=== PATIENT | female | born 1965 | race Hispanic/Latino ===

== ENCOUNTER 2017-05-09 06:10 | Day surgery (SDC) | payer OTHER ==
[2017-05-04 13:49] VITALS: BMI 34.2
[2017-05-09] MEDS ORDERED: Lidocaine Hydrochloride 5 ML INJ ONE (07:43)
[2017-05-09] MEDS ORDERED: ePHEDrine 50 mg/ml Inj ONE (07:43)
[2017-05-09] MEDS ORDERED: Midazolam 2 MG/2 ML VIAL ONE (07:45)
[2017-05-09] MEDS ORDERED: Propofol 10 mg/ml Inj (20 ML) ONE (07:45)
[2017-05-09] MEDS ORDERED: Albuterol HFA 90 mcg/actuation (8 g) ONE (07:56)
[2017-05-09] MEDS ORDERED: Clindamycin 600mg/50ml NS 0 MG/0 ML BAG IVPB ONE (07:57)
--- NOTE | 2017-05-09 08:37 | PCM.SURG1 ---
Surgeon's Initial Post Op Note - Surgeon's Notes Surgeon: Cathy Harrell MD Boat Repairer: none Type of Anesthesia: General LMA Pre-Operative Diagnosis: Abnormal uterine bleeding Operative Findings: 10 week size utuers, cervical stenosis, no adnxal masses, fundal myoma protuding into cavity less than 50%, multiple polypoid fragments without cavity, bilateral ostia visuzlied, urine out put 30cc clearn yellow urine Post-Operative Diagnosis: same a sabove, endometrial polyps, submucosa myoma Operation Performed: Hysteroscopic myoemctomy, endometrial polypectomy, fractional dilation and currettage Specimen/Specimens Removed: endocervical currettings, endometrial currettings, submucosal myoma, endometroal polyps Estimated Blood Loss: EBL {In ML}: 20 Drains Used: No Drains Post-Op Condition: Good Date of Surgery/Procedure: 05/09/17 Time of Surgery/Procedure: 08:00
[2017-05-09] MEDS ORDERED: HYDROmorphone 0.5 mg/0.5 ml ISec IVP PRN (08:46)
[2017-05-09] MEDS ORDERED: HYDROmorphone 0.5 mg/0.5 ml ISec ONE (08:47)
[2017-05-09] MEDS ORDERED: Lactated Ringer's 1,000 ML IV SCH (09:00)
[2017-05-09 10:07] VITALS: RESP 15
[2017-05-09 11:11] VITALS: BP 133/71; PULSE 74; TEMP 97.8; O2SAT 100
--- NOTE | 2017-05-09 17:22 | OP ---
PROCEDURE DATE: 05/09/2017 SURGEON: Cathy Harrell MD AUTO LOCATOR: None. TYPE OF ANESTHESIA: General LMA. PREOPERATIVE DIAGNOSIS: Abnormal uterine bleeding. OPERATIVE FINDINGS: A 10-week size uterus, cervical stenosis, no adnexal masses, fundal myoma protruding into cavity less than 50%, multiple polypoid fragments within the cavity, bilateral ostia visualized. URINE OUTPUT: 30 mL of clear yellow urine. POSTOPERATIVE DIAGNOSES: Abnormal uterine bleeding, endometrial polyps, submucosal myoma. OPERATION PERFORMED: Hysteroscopy, myomectomy, endometrial polypectomy, suction dilation and curettage. SPECIMEN REMOVED: Endocervical curettings, endometrial curettings, submucosal myoma, and endometrial polyp. ESTIMATED BLOOD LOSS: 20 mL. BLOOD PRODUCTS: None. COMPLICATIONS: None. DESCRIPTION OF PROCEDURE: The patient was taken to the operating room where she was given general anesthesia. Once it was found to be adequate, she was positioned on the operating table in a dorsal supine position with the legs supported using stirrups. The patient was then prepped and draped in the usual sterile fashion. A time-out was performed confirming correct patient and correct procedure. Bimanual examination was performed with the above-mentioned findings. A red rubber catheter was then inserted into the urethra to drain the bladder. Following this, a Cid retractor was placed on the anterior and posterior fornix of the vagina. The cervix was adequately visualized and a single-tooth tenaculum was placed in the anterior lip of the cervix. The cervix appeared stenotic. Endocervical curettings were [facility] and [facility] to [facility] on [facility]. Following this, the cervix was sequentially dilated and the uterus was then sounded to 9 cm. The cervix was sequentially dilated with a Lazaro dilator to allow for introduction of the 5-mm hysteroscope under direct visualization using normal saline as the distention media. Following this, bilateral ostia were visualized and there were multiple polypoid tissues noted throughout the cavity and a fundal myoma protruding into the cavity. The MyoSure device was then inserted under direct visualization and the polyps were resected under direct visualization including the myoma. There was good hemostasis noted. The MyoSure device was then removed and a gentle curettage 360 degrees until gritty texture was noted. The single-tooth tenaculum was removed. There was good hemostasis in all operative sites. All instruments were removed. At the end of the procedure, all needle, sponge, and instrument counts were noted and correct x2. The patient tolerated the procedure well and was transferred to the recovery room in stable condition. Cathy Harrell MD
== END 2017-05-09 10:59 | disposition home or self-care (01) ==
LOC: C.SDS 06:10
PROVIDERS: ATTEND Obstetrics & Gynecology
DX: N93.9 Abnormal uterine and vaginal bleeding, unspecified (principal); N84.0 Polyp of corpus uteri; N88.2 Stricture and stenosis of cervix uteri; D25.0 Submucous leiomyoma of uterus; N71.1 Chronic inflammatory disease of uterus; Z88.0 Allergy status to penicillin; J45.909 Unspecified asthma, uncomplicated; F41.9 Anxiety disorder, unspecified
CPT/HCPCS: 57505; 58558; 58561; 88305; J1170; J2250; J2704; J3010